=== PATIENT | male | born 1975 | race Caucasian/White ===

== ENCOUNTER → 2016-10-04 | Outpatient (CLI) | payer BC ==
[2016-10-04 18:36] LABS: Basophils % (A) 1 %; CH 30.5; CHCM 34.5; Eosinophils # (A) 0.1 k/uL (0-0.7); Eosinophils % (A) 1 %; HCT 46.9 % (39.0-53.0); HDW 2.83; HGB 15.6 gm/dL (13.0-17.5); Luc # (Auto) 0.12; Luc % (Auto) 2; Lymphocytes # (A) 1.9 k/uL (1.0-4.8); Lymphocytes % (A) 29 %; MCH 29.5 pg (25.0-35.0); MCHC 33.3 g/dL (31.0-37.0); MCV 88.7 fL (80.0-100.0); Mean Platelet Volume 7.7; Monocytes # (A) 0.5 k/uL (0-1.0); Monocytes % (A) 7 %; Neutrophils # (A) 4.1 k/uL (1.3-7.7); Neutrophils % (A) 62 %; RBC 5.29 m/uL (4.30-5.90); RDW 13.2 % (11.5-15.5); WBC 6.6 k/uL (3.8-10.6); WBC (Perox) 6.93
[2016-10-04 18:46] LABS: ALT 54 U/L (21-72); AST 30 U/L (17-59); Alkaline Phosphatase 76 U/L (38-126); Anion Gap 15 mmol/L; Blood Urea Nitrogen 18 mg/dL (9-20); Calcium 9.9 mg/dL (8.4-10.2); Carbon Dioxide 25 mmol/L (22-30); Chloride 104 mmol/L (98-107); Cholesterol 236 mg/dL (<200); Glucose 103 mg/dL (74-99); HDL Cholesterol 31 mg/dL (40-60); Non-African American GFR(MDRD) >60 (>60 ml/min/1.73 sqM); Potassium 4.2 mmol/L (3.5-5.1); Sodium 144 mmol/L (137-145); Total Bilirubin 0.7 mg/dL (0.2-1.3); Total Protein 8.2 g/dL (6.3-8.2)
[2016-10-04 19:27] LABS: Triglycerides 755 mg/dL (<150)
== END | disposition home or self-care (01) ==
LOC: MMGSC 16:38
PROVIDERS: ATTEND Family Medicine
DX: Z00.00 Encounter for general adult medical examination without abnormal findings (principal); E78.00 Pure hypercholesterolemia, unspecified; I10 Essential (primary) hypertension
CPT/HCPCS: 36415; 80053; 80061; 83721; 84439; 84443; 85025

== ENCOUNTER → 2024-03-04 | Outpatient (CLI) | payer BC ==
[2024-03-04 16:25] VITALS: BP 128/82; PULSE 69; RESP 20; TEMP 98
--- NOTE | 2024-03-04 16:39 | P.SLEEP ---
History of Present Illness DATE: 03/04/2024 CONSULTATION/NEW PATIENT EVALUATION HISTORY OF PRESENT ILLNESS/SLEEP-WAKE EVALUATION: 48-year-old gentleman had b een evaluated in the sleep center for possible obstructive sleep apnea hypopnea syndrome. SLEEP SCHEDULE: Usually sleep schedule from 911 PM to 7:15 AM on weekdays and until 7:30 AM on weekend. FALLING ASLEEP: Usually no significant problems with falling asleep. DURING SLEEP: Patient has loud snoring, witnessed episodes of stop breathing during the sleep by his . He wakes up from sleep up to 4 times with nocturia. Positive history of moving arms and legs constantly during the night. Usually patient sleeps on the back or stomach position. No history of hypnogogical hallucinations, sleep paralysis, or cataplexy. DURING THE DAY/WAKE STATE: In the morning patient wake up tired, falling asleep during the day. [place] sleepiness scale is an extremely high range of 17. Usually patient does not take naps. PAST MEDICAL HISTORY: Hypertension, sinuses problems. PAST SURGICAL HISTORY: Right hand surgery. MEDICATIONS: Please see below. SOCIAL HISTORY: Please see below. FAMILY HISTORY: Hypertension, heart problems, diabetes, cancer. REVIEW OF SYSTEMS: Loud snoring, multiple awakenings from sleep, significant excessive daytime sleepiness. No fevers. No double vision. No recent chest pain. No shortness of breath. No abdominal pain. No bleeding episodes. No blood in urine. No seizure episodes. PHYSICAL EXAMINATION: GENERAL: A pleasant patient without any distress. VITAL SIGNS: Please see below, weight 275.0 pounds, BMI 43. HEENT: PERRLA, EOMI. Evaluation of oropharynx showed tongue protrudes midline, low position of soft palate Mallampati 23, retrognathia 2-3 mm. NECK: Supple. No JVD. Thyroid is not palpable. 18 inches in circumference. LUNGS: Clear to percussion and to auscultation. Good air exchange. No wheezing or rhonchi. HEART: S1, S2 regular. No murmurs, gallops or rubs. ABDOMEN: Soft and nontender. Bowel sounds are present. No organomegaly appreciated. EXTREMITIES: No clubbing or cyanosis. MACHINE RUG CLEANER: Awake, alert, and oriented x3. Cranial nerves 2 to 7 intact. There is no fasciculation or atrophy noted. No focal deficits observed. ASSESSMENT: 1. Loud snoring, witnessed episodes of stop breathing during the sleep, small oropharyngeal airspace, wide neck 18 inches in circumference, significant excessive daytime sleepiness by high [place] Sleepiness Scale of 17. Obstructive sleep apnea hypopnea syndrome. 2. Significant amount of movements during the night, possibly periodic limb movements. 3. Obesity, BMI 43. 4. Hypertension. 5. History of sinuses problems. 6 . Status post right hand surgery. PLAN: 1. Polysomnography for evaluation of patient's breathing during sleep and to check for periodic limb movements. 2. Following plan after reading sleep study. 3. Preferable position during sleep on the side. 4. No driving if patient feels any sleepiness. Patient is aware of civil and criminal liability for unsafe driving. 5. Sleep hygiene with regular sleep time for at least 7.5-8 hours. 6. Watching and losing weight. Thank you very much for referring this patient for consultation. Sincerely, Richard Morales MD, PhD, FAASM. Diplomat of [employer], Sleep Medicine Board by [employer] Tool Designer Apprentice of [facility] [place] Past Medical History Past Medical History: Hypertension History of Any Multi-Drug Resistant Organisms: None Reported Additional Past Surgical History / Comment(s): right hand tip of finger sewn back on Past Anesthesia/Blood Transfusion Reactions: No Reported Reaction Past Psychological History: No Psychological Hx Reported Smoking Status: Never smoker Past Alcohol Use History: Rare Past Drug Use History: None Reported - Past Family History Mother History Unknown: Yes Father Family Medical History: Cancer, Hypertension Medications and Allergies Home Medications Medication Instructions Recorded Confirmed Type Fluticasone Nasal [place] [Flonase 1 spray EA NOSTRIL DAILY 03/04/24 03/04/24 History Nasal [place]] Losartan [Cozaar] 50 mg PO DAILY 03/04/24 03/04/24 History Allergies Allergy/AdvReac Type Severity Reaction Status Date / Time iodine Allergy Chest Pain Unverified 03/04/24 16:08 Physical Exam Vitals: Vital Signs Temp Pulse Resp BP Pulse Ox 03/04/24 16:24 98 F 69 20 128/82 95 Intake and Output 03/04/24 03/04/24 03/04/24 06:59 14:59 22:59 Other: Weight 124.738 kg Sleep Note - Sleep Data ESS Total: 17 - Sleep Note Sleep Note: Temperature: 98 F Pulse Rate: 69 Respiratory Rate: 20 Blood Pressure: 128/82 SpO2: 95 Height: 5 ft 7 in Weight: 124.738 kg BMI: Neck Circumference: 18
== END ==
LOC: 3 N SLEEP 15:46
PROVIDERS: ATTEND Internal Medicine
DX: G47.33 Obstructive sleep apnea (adult) (pediatric) (principal); E66.9 Obesity, unspecified; I10 Essential (primary) hypertension; Z98.890 Other specified postprocedural states; Z87.09 Personal history of other diseases of the respiratory system; Z68.41 Body mass index [BMI] 40.0-44.9, adult; Z88.8 Allergy status to other drugs, medicaments and biological substances; Z79.899 Other long term (current) drug therapy
CPT/HCPCS: 99202

== ENCOUNTER 2024-04-03 19:18 | Outpatient (CLI) | payer BC ==
--- NOTE | 2024-04-04 11:28 | P.PCN ---
Description of Procedure: POLYSOMNOGRAPHY REPORT PROCEDURE(S)/DATE(S): Polysomnography 04/03/2024 CLINICAL: Patient has been seen in the sleep center for evaluation of obstructive sleep apnea-hypopnea syndrome. Please see my consultation. Sleep study has been done for evaluation of patient breathing during the sleep. PROCEDURE: The standard montage for clinical polysomnography included the electroencephalogram, the electrooculogram, the mentalis surface electromyography and Lead II cardiography. The respiratory battery consisted of measurements of nasal/buccal air flow, pressure transducer measurements from nose, thoracic and/or abdominal effort and intercostal surface electromyography. Video monitoring has been done to check for any parasomnia events. Nocturnal oxyhemoglobin saturations were obtained by finger oximetry. Step-lovett titration with positive airway pressure was utilized to control the respiratory events, if necessary. RESULTS: During the diagnostic sleep study sleep efficiency was slightly decreased to 84.2%. Latency to sleep onset was quite short 7.5 min. Sleep architecture showed stage NI was extremely high 82.4%, Delta sleep was was absent %, REM sleep was decreased to 13.0%. Respiratory channel showed 0 obstructive apneas, 0 mixed apneas, 0 central apneas, 401 hypopneas with lowest oxygen level 42%. Total apnea hypopnea index was 71.3. Heart rate was in the range between 65 and 79, average 71. EMG showed 0 periodic limb movements per hour with 0 micro-arousals per hour. IMPRESSIONS: 1. Extremely severe obstructive sleep apnea hypopnea syndrome with extremely severe oxygen desaturation. 2. No significant periodic limb movements have been documented. Please see other impressions from consultation PLAN: 1. The patient will have PAP titration for correction of respiratory abnormalities during the sleep. 2. Losing weight program. 3. Sleep hygiene with regular time in bed for at least 7-1/2 hours. 4. No driving if feeling sleepiness. Thank you very much for allowing me to participate in the management of your patient. Sincerely, Richard Morales MD, PhD, FAASM. Diplomat of [employer] Medicine, Sleep Medicine Board by [employer] Medicine Supervisor Motor Vehicle Assembly of [facility] [place] cc: Palmira Cline MD
== END 2024-04-04 05:45 | disposition home or self-care (01) ==
LOC: 3 N SLEEP 19:18
PROVIDERS: ATTEND Internal Medicine
CPT/HCPCS: 95810

== ENCOUNTER 2024-04-09 19:32 | Outpatient (CLI) | payer BC ==
--- NOTE | 2024-04-10 11:13 | P.PCN ---
Description of Procedure: CLINICAL: Titration with positive air pressure has been done for correction of respiratory abnormalities during sleep. DESCRIPTION OF PROCEDURE: The standard montage for clinical polysomnography included the electroencephalogram, the electrocardiogram, the mentalis surface electromyography and Lead II cardiography. The respiratory battery consisted of measurements of nasal /buccal air flow, pressure transducer measurements from the nose, thoracic and /or abdominal effort and intercostal surface electromyography. Video monitoring has been done to check for any parasomnia events. Nocturnal oxyhemoglobin saturations were obtained by finger oximetry. Step-lovett titration with positive airway pressure was utilized to control respiratory events. Raw data of sleep recording has been reviewed and is adequate. RESULTS: Sleep efficiency was in high range 97.0%. Latency to sleep onset was short 5.0 minutes.]. Sleep architecture showed stage N1 was normal 5.9%, Delta sleep was absent 0%, REM sleep was in very high range of 47.3%. Heart rate was minimum. 57 BPM, maximum 65 BPM, average 61 BPM. EMG showed 0.7 periodic limb movements per hour. PAP titration have been done with CPAP up to the pressure 15 cm H2O. Patient had problems with CPAP, switched to BPAP. BPAP titrated up to 20/16 cm H2O. The best results were at the pressure 19/15 cm H2O. Apnea hypopnea index reduced to 1.8. IMPRESSION: 1. Obstructive sleep apnea hypopnea syndrome mostly on controle with BPAP treatment. 2. No significant periodic limb movements have been documented. Please see other impressions from consultation. PLAN: 1. The patient will have treatment with positive air pressure equipment with the level of pressure out of BiPAP with maximal inspiratory pressure 20 and minimal expiratory pressure 5 cm H2O and should use it every night for the whole night. 2. Watching and losing weight. 3. Sleep hygiene with regular time in bed for at least 8 hours. 4. No driving if feeling any sleepiness. 5. I will see the patient for follow up visit to explain the results of the test, recommendations, check compliance with treatment and make any necessary adjustment related to mask fitting, pressure and humidification. Thank you very much for allowing me to participate in the management of your patient. Sincerely, Richard Morales MD, PhD, FAASM Diplomat of [employer] Sleep Medicine Board of [employer] of Internal Medicine Strap Buckler of [facility] [place]
== END 2024-04-10 05:15 | disposition home or self-care (01) ==
LOC: 3 N SLEEP 19:32
PROVIDERS: ATTEND Internal Medicine
CPT/HCPCS: 95811

== ENCOUNTER → 2024-06-19 | Outpatient (CLI) | payer BC ==
[2024-06-19 15:32] VITALS: BP 154/81; PULSE 72; RESP 16; TEMP 97.9
--- NOTE | 2024-06-19 16:01 | P.PROGSL ---
Subjective DATE: 06/19/2024 FOLLOW UP VISIT. Patient with obstructive sleep apnea hypopnea syndrome return to sleep center for follow-up visit. Recently patient had sleep study which documented obstructive sleep apnea hypopnea syndrome. Patient was initiated on PAP therapy and today is first visit after treatment was started. Patient was able to use PAP equipment every night for the whole night. The patient does not have significant problems with the mask, PAP pressure and humidification. [place] sleepiness scale is 0, which is perfect. I checked information from PAP unit. PAP unit pressure maximal inspiratory pressure 20, minimal expiratory pressure 5, pressure support 4, average pressure 13.3/9.4 cm H2O. Usage is 100% for more then 4 hours, average 6.5 hours per night. Leak is 12.0 l/m, which is in acceptable range. Apnea Hypopnea Index is 1.7, which is normal. MEDICATIONS:1. Fluticasone 2. Losartan 50 mg once a day During physical exam: GENERAL: A pleasant patient without any distress. VITAL SIGNS: Please see below weight is 274 pounds. HEENT: PERRLA, EOMI.low position of soft palate, Mallapati 23. NECK: Supple. No JVD. LUNGS: Clear to percussion and to auscultation. Good air exchange. No wheezing or rhonchi. HEART: S1, S2 regular. ABDOMEN: Soft and nontender.[] EXTREMITIES: No clubbing or cyanosis. COMMERCIAL COUNSEL: Awake, alert, and oriented x3. No focal deficit. Impressions: 1. Obstructive sleep apnea-hypopnea syndrome. Patient demonstrated great compliance with treatment, benefiting from treatment. 2. Obesity. 3. Hypertension. 4. History of sinuses problems. 5. Status post right hand surgery. Plan: 1. Continue using PAP equipment every night for the whole night. 2. To change air filter at least 1-2 times per month. 3. PAP unit should stay lower then position of the head. 4. Advised patient to remove all remaining water from humidifier canister daily and make it dry after each usage. Refill canister with fresh distilled water before each usage. 5. Sleep hygiene with regular time in bed for at least 8 hours. 6. Precautions related to driving. No driving if feel any sleepiness. 7. I will maintain prescription for PAP supplies including mask, tube, filters. 8. Follow up visit in 8 months or earlier if patient has any problems. 9. Watching and losing weight. Thank you very much for allowing me to participate in the management of your patient. Richard Morales MD, PhD, FAASM. Diplomat of [place] Board of Sleep Medicine, Sleep Medicine Board by [place] [employer] Internal Medicine Soft Shoe Dancer of [facility] [place] cc: Palmira Cline MD Objective - Vital Signs Vital Signs: Vital Signs Temp 97.9 F 06/19/24 15:31 Pulse 72 06/19/24 15:31 Resp 16 06/19/24 15:31 BP 154/81 06/19/24 15:31 Pulse Ox 98 06/19/24 15:31 FiO2 Intake & Output 06/18/24 06/19/24 06/19/24 18:59 06:59 18:59 Weight 124.284 kg Home Medications: Home Medications Medication Instructions Recorded Confirmed Type Fluticasone Nasal [place] [Flonase 1 spray EA NOSTRIL DAILY 03/04/24 03/04/24 History Nasal [place]] Losartan [Cozaar] 50 mg PO DAILY 03/04/24 03/04/24 History
== END ==
LOC: 3 N SLEEP 14:42
PROVIDERS: ATTEND Internal Medicine
DX: G47.33 Obstructive sleep apnea (adult) (pediatric) (principal); E66.9 Obesity, unspecified; I10 Essential (primary) hypertension; Z87.09 Personal history of other diseases of the respiratory system; Z98.890 Other specified postprocedural states; Z99.89 Dependence on other enabling machines and devices; Z88.8 Allergy status to other drugs, medicaments and biological substances; Z79.899 Other long term (current) drug therapy
CPT/HCPCS: 99212

== ENCOUNTER → 2025-03-07 | Outpatient (CLI) | payer BC ==
--- NOTE | 2025-03-07 17:41 | P.PROGSL ---
Subjective DATE: 03/07/2025 FOLLOW UP VISIT. Patient with obstructive sleep apnea hypopnea syndrome return to sleep center for follow-up visit. Information from previous visit have been reviewed. Patient is using PAP equipment every night for the whole night, getting PAP supplies in time. The patient does not have significant problems with the mask, PAP unit and humidification. [place] sleepiness scale is 2, which is normal. I checked information from PAP unit. BPAP unit pressure maximal inspiratory pressure 20, minimal expiratory pressure 5, average pressure 13.2/9.2 cm H2O. Usage is 100% for more then 4 hours, average 6.1 hours per night. Leak is 11 l/m, which is in acceptable range. Apnea Hypopnea Index is 1.4, which is normal. MEDICATIONS none. During physical exam: GENERAL: A pleasant patient without any distress. VITAL SIGNS: BP 154/94, HR 67 RR 15, weight 257, temperature 98.4, oxygen saturation on room air 98%, BMI 40.2. HEENT: PERRLA, EOMI.low position of soft palate, Mallapati 23. NECK: Supple. No JVD. LUNGS: Clear to percussion and to auscultation. Good air exchange. No wheezing or rhonchi. HEART: S1, S2 regular. ABDOMEN: Soft and nontender.[] EXTREMITIES: No clubbing or cyanosis. TOWER TRUCK DRIVER: Awake, alert, and oriented x3. No focal deficit. Impressions: 1. Obstructive sleep apnea-hypopnea syndrome. Patient demonstrated great compliance with treatment, benefiting from treatment. 2. Obesity, BMI 40.2, patient lost 17 pounds since previous visit. 3. Hypertension. 4. History of sinus problems. 5. Status post right hand surgery. Plan: 1. Continue using PAP equipment every night for the whole night. 2. Sleep hygiene with regular time in bed for at least 7.5-8 hours 3. PAP unit should stay lower then position of the head. 4. Advised patient to remove all remaining water from humidifier canister daily and make it dry after each usage. Refill canister with fresh distilled water before each usage. 5. Watching and continue losing weight. 6. Precautions related to driving. No driving if feel any sleepiness. 7. I will maintain prescription for PAP supplies including mask, tube, filters. 8. Follow up visit in 12 months or earlier if patient has any problems. Thank you very much for allowing me to participate in the management of your patient. Richard Morales MD, PhD, FAASM. Diplomat of [place] Medicine, Sleep Medicine Board by [employer] Medicine Cmm Technician of [facility] [place] Objective Home Medications: Home Medications Medication Instructions Recorded Confirmed Type Fluticasone Nasal [place] [Flonase 1 spray EA NOSTRIL DAILY 03/04/24 03/04/24 History Nasal [place]] Losartan [Cozaar] 50 mg PO DAILY 03/04/24 03/04/24 History
== END ==
LOC: 3 N SLEEP 16:37
PROVIDERS: ATTEND Internal Medicine
CPT/HCPCS: 99212